=== PATIENT | female | born 2000 | race Hispanic/Latino ===

== ENCOUNTER 2024-08-22 13:00 | Emergency (ER) | payer BC ==
[~2024-08-22] VITALS: Ht 165.1 cm; Wt 112.5 kg
[2024-08-22 13:01] VITALS: TEMP 98.1
[2024-08-22 13:47] LABS: BASOPHILS # (AUTO) 0.04 K/uL (0.00-0.20); BASOPHILS % (AUTO) 0.4 % (0.0-5.0); EOSINOPHILS # (AUTO) 0.27 K/uL (0.00-0.70); EOSINOPHILS % (AUTO) 2.7 % (0.0-8.0); HEMATOCRIT 37.6 % (36-48); IMMATURE GRANULOCYTE ABSOLUTE 0.37 K/uL (0-1); LYMPHOCYTES # (AUTO) 1.6 K/uL (1.0-4.8); LYMPHOCYTES % (AUTO) 16.5 % (21.0-51.0); MEAN CORPUSCULAR HEMOGLOBIN 31.4 pg (27.0-33.0); MEAN CORPUSCULAR HGB CONC 33.2 g/dL (32.0-36.0); MEAN CORPUSCULAR VOLUME 94.5 fL (79-99); MONOCYTES # (AUTO) 0.4 K/uL (0.1-1.0); MONOCYTES % (AUTO) 4.1 % (3.0-13.0); NEUTROPHILS # (AUTO) 7.2 K/uL (1.8-7.7); NEUTROPHILS % (AUTO) 72.6 % (40.0-77.0); PLATELET COUNT (AUTO) 148 K/uL (130-400); RED BLOOD CELL COUNT(AUTO) 3.98 MIL/uL (4.00-5.50); RED CELL DISTRIBUTION WIDTH 13.5 % (11.0-15.5); WHITE BLOOD COUNT (AUTO) 9.9 K/uL (4.8-10.8)
[2024-08-22 13:52] LABS: APPEARANCE,URINE CLOUDY (CLEAR); BILIRUBIN,URINE NEGATIVE (NEGATIVE); COLOR,URINE YELLOW (YELLOW); GLUCOSE, URINE (UA) NEGATIVE (NEGATIVE); KETONES,URINE NEGATIVE (NEGATIVE); LEUKOCYTE ESTERASE ,URINE 25 Leu/uL (NEGATIVE); NITRATE,URINE NEGATIVE (NEGATIVE); OCCULT BLOOD,URINE LARGE (NEGATIVE); PH,URINE 5.5 (5.0-8.0); PROTEIN,URINE 50 mg/dL (NEGATIVE); UROBILINOGEN,URINE 0.2 mg/dL (0.2-1.0)
[2024-08-22 13:59] LABS: CREATININE 0.7 mg/dL (0.5-1.0); POTASSIUM 3.5 mmol/L (3.5-5.1)
[2024-08-22 14:01] LABS: INR 1.02 (0.85-1.15); PROTHROMBIN TIME 11.4 SEC (9.6-11.6)
[2024-08-22 14:02] LABS: PARTIAL THROMBOPLASTIN TIME 30.1 SEC (26.3-35.5)
[2024-08-22 14:05] LABS: MUCUS,URINE RARE LPF (None Seen); RBC,URINE TNTC /HPF (0-1); SQUAMOUS EPITHELIAL CELL,UR RARE /HPF (0-2)
--- NOTE | 2024-08-22 14:46 | HMCIMG ---
US PELVIC NON-OB COMP HISTORY: Vaginal bleed & cramping TECHNIQUE: Real-time pelvic ultrasound was performed. FINDINGS: Uterus measures 7.4 cm and endometrium measures 0.5 cm in thickness. Right ovary measures 2.9 cm with vascular flow. Left ovary was not visualized. No free fluid seen in the pelvis. IMPRESSION: No adnexal mass is seen.
--- NOTE | 2024-08-22 14:48 | NUR ---
PT MOVED TO MY ROOM [facility] AT THIS TIME.
[2024-08-22] MEDS ORDERED: CEPH500T PO (15:16)
--- NOTE | 2024-08-22 15:18 | ERN ---
General Chief Complaint: Vaginal Problems/Bleeding Stated Complaint: VAGINAL BLEEDING Time Seen by MD: 13:02 Time Seen by Midlevel: 13:02 Source: patient History of Present Illness Allergies: Coded Allergies: No Known Drug Allergies (Unverified Allergy, Unknown, 08/22/24) Past Medical History Past Medical History: No Pertinent History Past Surgical History: None Results Laboratory and Microbiology Lab and Micro Result Laboratory Tests Test 08/22/24 13:38 08/22/24 13:39 White Blood Count 9.9 K/uL (4.8-10.8) Red Blood Count 3.98 MIL/uL (4.00-5.50) L Hemoglobin 12.5 g/dL (12.0-16.0) Hematocrit 37.6 % (36-48) Mean Corpuscular Volume 94.5 fL (79-99) Mean Corpuscular Hemoglobin 31.4 pg (27.0-33.0) Mean Corpuscular Hemoglobin Concent 33.2 g/dL (32.0-36.0) Red Cell Distribution Width 13.5 % (11.0-15.5) Platelet Count 148 K/uL (130-400) Mean Platelet Volume 12.6 fL (7.5-10.5) H Immature Granulocyte % (Auto) 3.7 % (0-1) H Neutrophils (%) (Auto) 72.6 % (40.0-77.0) Lymphocytes (%) (Auto) 16.5 % (21.0-51.0) L Monocytes (%) (Auto) 4.1 % (3.0-13.0) Eosinophils (%) (Auto) 2.7 % (0.0-8.0) Basophils (%) (Auto) 0.4 % (0.0-5.0) Neutrophils # (Auto) 7.2 K/uL (1.8-7.7) Lymphocytes # (Auto) 1.6 K/uL (1.0-4.8) Monocytes # (Auto) 0.4 K/uL (0.1-1.0) Eosinophils # (Auto) 0.27 K/uL (0.00-0.70) Basophils # (Auto) 0.04 K/uL (0.00-0.20) Absolute Immature Granulocyte (auto 0.37 K/uL (0-1) Nucleated Red Blood Cells 0.0 % (0.0-0.19) Prothrombin Time 11.4 SEC (9.6-11.6) Prothromb Time International Ratio 1.02 (0.85-1.15) Activated Partial Thromboplast Time 30.1 SEC (26.3-35.5) Sodium Level 136 mmol/L (136-145) Potassium Level 3.5 mmol/L (3.5-5.1) Chloride Level 101 mmol/L (101-111) Carbon Dioxide Level 28 mmol/L (21-32) Blood Urea Nitrogen 7 mg/dL (7-18) Creatinine 0.7 mg/dL (0.5-1.0) Glomerular Filtration Rate Calc 124 mL/min (>90) Random Glucose 110 mg/dL (70-105) H Total Calcium 9.4 mg/dL (8.5-10.1) Human Chorionic Gonadotropin, Quant 2552 mIU/mL (0-5) H Urine Color YELLOW (YELLOW) Urine Appearance CLOUDY (CLEAR) H Urine pH 5.5 (5.0-8.0) Urine Specific [place] 1.028 (1.001-1.031) Urine Protein 50 mg/dL (NEGATIVE) H Urine Glucose (UA) NEGATIVE mg/dL (NEGATIVE) Urine Ketones NEGATIVE mg/dL (NEGATIVE) Urine Occult Blood LARGE (NEGATIVE) H Urine Nitrate NEGATIVE (NEGATIVE) Urine Bilirubin NEGATIVE mg/dL (NEGATIVE) Urine Urobilinogen 0.2 mg/dL (0.2-1.0) Urine Leukocyte Esterase 25 Roland/uL (NEGATIVE) H Urine RBC TNTC /HPF (0-1) H Urine WBC 2-5 /HPF (0-1) H Urine Squamous Epithelial Cells RARE /HPF (0-2) Urine Bacteria None /HPF (None Seen) ED Course Orders Procedure Category Date Status Time Cbc With Differential LAB 08/22/24 Complete 13:07 Basic Metabolic Panel LAB 08/22/24 Complete 13:07 Pt And Ptt LAB 08/22/24 Complete 13:07 Urinalysis LAB 08/22/24 Complete W/Microscopic 13:07 Hcg,Quantitative LAB 08/22/24 Complete 13:07 Us Pelvic Non-Ob Comp US 08/22/24 Resulted 13:36 Ceftriaxone 1g Vial PHA 08/22/24 Transmitted (Rocephine 1g Inj) 15:30 Vital Signs Date Time Temp Pulse Resp B/P (MAP) Pulse Ox O2 Delivery O2 Flow Rate FiO2 08/22/24 13:01 98.1 97 14 158/104 97 Room Air 0 DX & DISP Disposition: Discharge Departure Impression: Primary Impression: Urinary tract infection Additional Impressions: Miscarriage, threatened, early , Vaginal bleeding in Condition: Stable Scripts Cephalexin (Cephalexin) 500 Mg Tablet 500 MG PO BID for 7 Days, #14 TAB Prov: JAIR MONTELONGO 08/22/24 Additional Instructions: Discharge home. Rest. Follow up with primary care DrIsis in 24 hours. Return to the ER for any acute changes or worsening symptoms. If any medications were prescribed take as directed. Okay to continue home medications unless otherwise discussed during your visit in the emergency room today. Patient was also advised to follow-up with primary care physician in 1 to 2 days for continued monitoring. Referrals: SOFYA BENITEZ (PCP) VLAD WASHBURN MD I participated in the following activities of this patient's care: For this patient encounter, I reviewed the PA or INTER[employer] documentation, treatment plan, and medical decision making. I did not have [id number] time with this patient. I will sign as the reviewing DrIsis And agree with the treatment plan and disposition. JAIR MONTELONGO Aug 22, 2024 15:18
[2024-08-22] MEDS: cefTRIAXone 1G VIAL IM ONE (15:50)
[2024-08-22 16:05] VITALS: BP 125/78; PULSE 82; RESP 18; O2SAT 98
== END 2024-08-22 16:06 | disposition home or self-care (01) ==
LOC: EDH 13:00
DX: O23.41 Unspecified infection of urinary tract in pregnancy, first trimester (principal); N39.0 Urinary tract infection, site not specified; O20.0 Threatened abortion; Z3A.00 Weeks of gestation of pregnancy not specified
CPT/HCPCS: 99284; 76856; 80048; 84702; 85025; 85610; 85730; 81001; 36415; 96372; J0696